=== PATIENT | female | born 1970 | race Caucasian/White ===

== ENCOUNTER 2020-08-06 13:27 | Inpatient (IN) | payer MEDICAID ==
[~2020-08-06] VITALS: Ht 170.2 cm; Wt 56.6 kg
--- NOTE | 2020-08-06 16:45 | NUR ---
Admission Note: Pt. admitted at approximately 1645 from [facility], arrived in a w/c accompanied by [employer] and security. Pt. was originally BIB EMS after being found in front of an AM/PM store confused, disoriented, with rapid/pressured speech, and speaking in tongues. Pt. also c/o feeling like she was having a heart attack or a stroke, she was medically cleared at [facility]. Pt's toxicology screen was positive for amphetamines. She reported while there that she has received mental health treatment since the age of 20. Pt. was somewhat cooperative with the admission process, although she required frequent direction/redirection r/t tangental thought process and rapid, disorganized speech.
[2020-08-06 16:50] VITALS: BP 125/69
[2020-08-06] MEDS ORDERED: magnesium hydroxide 30ml (MOM) UD suspension PO PRN (17:05)
[2020-08-06] MEDS ORDERED: acetaminophen 325mg tablet PO PRN (17:05)
[2020-08-06] MEDS ORDERED: mag hydrox/Alum hydrox/simeth 30ml oral suspension PO PRN (17:05)
[2020-08-06] MEDS ORDERED: NICOTINE POLACRILEX 2 MG LOZENGE BC PRN (17:05)
[2020-08-06] MEDS ORDERED: GABA300C PO (17:50)
[2020-08-06] MEDS ORDERED: RISP0.5T74 PO (17:50)
[2020-08-06] MEDS: risperiDONE 0.5mg tablet PO SCH (20:07)
[2020-08-06] MEDS: gabapentin 300mg capsule PO SCH (20:07)
[2020-08-06 20:25] VITALS: BP 124/66
--- NOTE | 2020-08-06 23:04 | NUR ---
Nursing Progress Note:[] Legal hold:[] Client on voluntary/involuntary status for GD/DTS/DTO[]. Report received from nurse with use of SBAR[]. Why are they here: Pt. admitted at approximately 1645 from [facility], arrived in a w/c accompanied by [employer] and security. Pt. was originally BIB EMS after being found in front of an AM/PM store confused, disoriented, with rapid/pressured speech, and speaking in tongues. Pt. also c/o feeling like she was having a heart attack or a stroke, she was medically cleared at [facility]. Pt's toxicology screen was positive for amphetamines. She reported while there that she has received mental health treatment since the age of 20. Pt. was somewhat cooperative with the admission process, although she required frequent direction/redirection r/t tangental thought process and rapid, disorganized speech. What has happened this shift:Pt was in bed eating her dinner tray at shift change. Attempted to interview but pt speech was Tangential rapid with scattered thoughts. Pt was med compliant and went to sleep. S/I, H/I: She denies S/I at this time, A/VH: Denies Sleep: See sleep hrs ADL's: Requires encouragement, Group attendance: No Were meds taken: Yes Any med S/E: None Mental Status Exam Appearance: Hair disheveled, however appropriately dressed Eye contact: Fair, pt. Behavior: Cooperative, fatigued, anxious, withdrawn, and isolative Speech: tangential Mood: Guarded and withdrawn Affect: Constricted Thought process: disorganization Thought Content: scattered Cognition: A&O X(not to place) Insight: Poor Judgment: Poor Interventions PRN's used: none Therapeutic interventions: Introduced self and established rapport, maintained a safe and supportive environment, ensured contract for safety, provided clear and simple instructions, attempted to orient to reality encouraged participation on the unit and provided direction as needed, and maintained Q 15 min safety checks. Restraints/seclusion/emergency medication: N/A Justification of Continued Inpatient Treatment: Pt. requires interruption of current crisis, medication adjustments, and a safe and supportive environment.
[2020-08-07 07:07] LABS: CHOL/HDL RATIO 2.5 (0.00-4.99); CHOLESTEROL 142 MG/DL (0-200); HDL CHOLESTEROL 56 MG/DL (35-60); LDL CHOLESTEROL 71 MG/DL (50-100); TRIGLYCERIDES 57 MG/DL (20-135)
[2020-08-07] MEDS: LORazepam 1 MG tablet PO PRN ×3 (07:08→18:47)
[2020-08-07] MEDS: risperiDONE 0.5mg tablet PO SCH ×2 (07:08→20:15)
[2020-08-07] MEDS: gabapentin 300mg capsule PO SCH ×3 (07:08→20:15)
[2020-08-07 07:09] LABS: HEMOGLOBIN A1C 5.8 % (4.5-6.2)
[2020-08-07] MEDS: nicotine 21mg patch - 24 hr TD SCH (07:09)
[2020-08-07] MEDS: acetaminophen 325mg tablet PO PRN (07:09)
[2020-08-07 08:00] VITALS: BP 150/95
--- NOTE | 2020-08-07 17:37 | NUR ---
Nursing Progress Note: Legal hold: 5150 Client on involuntary status for DTS Report received from nurse with use of SBAR: ALEXI Gold Why are they here: Pt. admitted from [facility], arrived in a w/c accompanied by [employer] and security. Pt. was originally BIB EMS after being found in front of an AM/PM store confused, disoriented, with rapid/pressured speech, and speaking in tongues. Pt. also c/o feeling like she was having a heart attack or a stroke, she was medically cleared at [facility]. Pt's toxicology screen was positive for amphetamines. She reported while there that she has received mental health treatment since the age of 20. Pt. was somewhat cooperative with the admission process, although she required frequent direction/redirection r/t tangental thought process and rapid, disorganized speech. Assessment What has happened this shift: Received pt. sleeping in bed, she awoke for AM blood draw and immediately presented with rapid disorganized speech and random strange behaviors. Pt. was singing and dancing in the hallway, making faces and knocking on the nurses station window, and pacing in the hallways. This racebook writer provided redirection and reminded pt. that her peers were trying to sleep. Pt. was only able to be partially redirected, however continued to exhibit random behaviors and appeared anxious, PRN Ativan administered with effectiveness. Pt. attended breakfast in the Group Room, and 1:1 completed afterwards at bedside. During assessment, pt. was talking baby talk stated, "[place]dr[place]." However, was able to be intermittently redirected to answer simple yes or no questions. Pt. denies all MH s/s, however admits to feeling a little depressed and anxious. She makes intermittent delusional statements, states, "I'm Filippo's daughter." Pt. attended all groups, however again began to exhibit anxiety and with strange intrusive behaviors in the afternoon, additional PRN Ativan administered with effectiveness. Pt. napped in the afternoon, will continue to monitor. S/I, H/I: Denies A/VH: Denies, however appears distracted and internally preoccupied Sleep: Pt. reports she slept well, sleep hours are 10 ADL's: Pt. requires direction from staff Group attendance: Yes Were meds taken: Yes Any med S/E: None Mental Status Exam Appearance: Hair disheveled, however appropriately dressed Eye contact: Good, intense at times Behavior: Cooperative, restless, impulsive, anxious, and hypomanic Speech: Hyperverbal, disorganized, and mostly nonsensical Mood: Pleasant and anxious Affect: Animated Thought process: Tangental and disorganized Thought Content: Possible A/V/MENEZES and delusions Cognition: A&O X2 Insight: Poor Judgment: Poor Interventions PRN's used: Ativan X2 and Tylenol Therapeutic interventions: Maintained a safe and supportive environment, ensured contract for safety, provided clear and simple instructions, attempted to orient to reality, encouraged participation on the unit and provided direction, provided medication education, provided active listening and positive encouragement, and maintained Q 15 min safety checks. Restraints/seclusion/emergency medication: N/A Justification of Continued Inpatient Treatment: Pt. requires interruption of current crisis, medication adjustments, and a safe and supportive environment.
--- NOTE | 2020-08-07 17:54 | NUR ---
Continued Group Art Therapy Notes: This was the first time this patient attended group art therapy. This patient was eager to participate, was pleasant and motivated to draw. During the course of the group session, this patient complete 5 successive drawings. She could not follow the directives, however this therapist kept the patient "in paper" to allow her a place to 'draw and release her what appeared to be excessive emotional content. At one point the patient began drawing on the tables, which is why providing a supply of paper seemed important. It was difficult for this therapist to determine the content of her conversation. On paper, it was observed that several different names were repeated. Patient presented as friendly, however interaction with her peers was challenging (for others as again observed by this therapist. No further communications transpired. Jennifer Oneill MA (Alena Marie), [facility] #[id number], Art Therapist Addendum: 08/07/20 at 1757 by Jennifer STEINER Amended: Links added.
[2020-08-07 20:00] VITALS: BP 132/77
[2020-08-07 20:30] VITALS: BP 132/77
--- NOTE | 2020-08-07 23:36 | NUR ---
Nursing Progress Note: Legal hold: 5150 Client on involuntary status for DTS Report received from nurse with use of SBAR: Gamal RN Why are they here: Pt. admitted from [facility], arrived in a w/c accompanied by [employer] and security. Pt. was originally BIB EMS after being found in front of an AM/PM store confused, disoriented, with rapid/pressured speech, and speaking in tongues. Pt. also c/o feeling like she was having a heart attack or a stroke, she was medically cleared at [facility]. Pt's toxicology screen was positive for amphetamines. She reported while there that she has received mental health treatment since the age of 20. Pt. was somewhat cooperative with the admission process, although she required frequent direction/redirection r/t tangental thought process and rapid, disorganized speech. Assessment What has happened this shift: Patient was wandering the halls talking to her self. and being intrusive to her peers. Her speech is disorganized and talkes in circles. She makes statements like your my grand father but he is the faina of music. my family are singers and thats why Darrius Bedolla erupted. It spewed snow. Pt was given prn Ativan and was less intrusive and after med pass pt went to bed. S/I, H/I: Denies A/VH: Denies, however appears distracted and internally preoccupied Sleep: Pt. reports she slept well, sleep hours are 10 ADL's: Pt. requires direction from staff Group attendance: Yes Were meds taken: Yes Any med S/E: None Mental Status Exam Appearance: Hair disheveled, however appropriately dressed Eye contact: Good, intense at times Behavior: Cooperative, restless, impulsive, anxious, and hypomanic Speech: Hyperverbal, disorganized, and mostly nonsensical Mood: Pleasant and anxious Affect: Animated Thought process: Tangental and disorganized Thought Content: Possible A/V/MENEZES and delusions Cognition: A&O X2 Insight: Poor Judgment: Poor Interventions PRN's used: Ativan Therapeutic interventions: Maintained a safe and supportive environment, ensured contract for safety, provided clear and simple instructions, attempted to orient to reality, encouraged participation on the unit and provided direction, provided medication education, provided active listening and positive encouragement, and maintained Q 15 min safety checks. Restraints/seclusion/emergency medication: N/A Justification of Continued Inpatient Treatment: Pt. requires interruption of current crisis, medication adjustments, and a safe and supportive environment.
[2020-08-08] MEDS: gabapentin 300mg capsule PO SCH ×3 (08:14→19:49)
[2020-08-08] MEDS: risperiDONE 0.5mg tablet PO SCH ×2 (08:14→19:49)
[2020-08-08] MEDS: acetaminophen 325mg tablet PO PRN (08:16)
[2020-08-08] MEDS: nicotine 21mg patch - 24 hr TD SCH (08:16)
[2020-08-08 08:41] VITALS: BP 111/65
[2020-08-08] MEDS: LORazepam 1 MG tablet PO PRN ×2 (13:28→18:49)
--- NOTE | 2020-08-08 15:48 | NUR ---
Nursing Progress Note: Legal hold: 5150 Client on involuntary status for DTS Report received from nurse with use of SBAR: ALEXI Gold Why are they here: Pt. admitted from [facility], arrived in a w/c accompanied by [employer] and security. Pt. was originally BIB EMS after being found in front of an AM/PM store confused, disoriented, with rapid/pressured speech, and speaking in tongues. Pt. also c/o feeling like she was having a heart attack or a stroke, she was medically cleared at [facility]. Pt's toxicology screen was positive for amphetamines. She reported while there that she has received mental health treatment since the age of 20. Pt. was somewhat cooperative with the admission process, although she required frequent direction/redirection r/t tangental thought process and rapid, disorganized speech. Assessment What has happened this shift: Received pt. sleeping in bed, she was awoken by staff to attend breakfast, and afterwards retreated back to bed. Pt. presented as more clear this morning and greets this development writer appropriately, states, "I slept well." However, after breakfast pt. again began to present with strange behaviors AEB singing loudly and dancing in the hallway and was observed to be talking aloud to herself in a disorganized and nonsensical manner. Pt. isolated and slept throughout the morning and awoke in the afternoon. 1:1 completed at bedside, pt. continues to deny all MH s/s, however admits to having anxiety. When questioned by this development writer in regard to her anxiety, pt. states, "I had six abortions." She reports she has two living children in [place] where she is from, however then begins to make delusional statements. She reports she has not seen her children because she has been on a, "Catholic walk to [place]." Pt. then reports that she has LEENA, and when asked to clarify this, stated, "It's extra-sensory perception, I can control the people around me." Pt. then began to speak in a non-sense what appeared to be a made-up language. She exhibited increased anxiety AEB pacing the hallway and becoming intrusive with peers and was only able to be partially redirected, PRN Ativan administered with effectiveness. Pt. attended art group and remained up throughout the afternoon, continuing to attempt to interact with her peers, however continues to present as disorganized with rapid non-sensical speech. S/I, H/I: Denies A/VH: Denies, however appears distracted and internally preoccupied Sleep: Pt. reports she slept well, sleep hours are 7.25, naps during the day ADL's: Pt. requires direction from staff Group attendance: Yes Were meds taken: Yes Any med S/E: None Mental Status Exam Appearance: Hair disheveled, however appropriately dressed Eye contact: Good, intense at times Behavior: Cooperative, restless, impulsive, anxious, and hypomanic Speech: Hyperverbal, disorganized, and mostly nonsensical Mood: Pleasant and anxious Affect: Animated Thought process: Tangental and disorganized Thought Content: Possible A/V/MENEZES and delusions Cognition: A&O X2 Insight: Poor Judgment: Poor Interventions PRN's used: Ativan X1 and Tylenol Therapeutic interventions: Maintained a safe and supportive environment, ensured contract for safety, provided clear and simple instructions, attempted to orient to reality, encouraged participation on the unit and provided direction, provided medication education, provided active listening and positive encouragement, and maintained Q 15 min safety checks. Restraints/seclusion/emergency medication: N/A Justification of Continued Inpatient Treatment: Pt. requires interruption of current crisis, medication adjustments, and a safe and supportive environment.
[2020-08-08 20:22] VITALS: BP 118/75
[2020-08-08] MEDS ORDERED: risperiDONE 2mg tablet PO ONE (20:30)
--- NOTE | 2020-08-08 23:23 | NUR ---
Nursing Progress Note: Legal hold: 5150 Client on involuntary status for DTS Report received from nurse with use of SBAR: Gamal RN Why are they here: Pt. admitted from [facility], arrived in a w/c accompanied by [employer] and security. Pt. was originally BIB EMS after being found in front of an AM/PM store confused, disoriented, with rapid/pressured speech, and speaking in tongues. Pt. also c/o feeling like she was having a heart attack or a stroke, she was medically cleared at [facility]. Pt's toxicology screen was positive for amphetamines. She reported while there that she has received mental health treatment since the age of 20. Pt. was somewhat cooperative with the admission process, although she required frequent direction/redirection r/t tangental thought process and rapid, disorganized speech. Assessment What has happened this shift: Patient was in her room at change of shift talking to her self. She stated I'm talking to my Grand father. She told this proposal writer "I can see your soul and future." She would picker tender aphone and dial few numbers and have a long conversation and you could hear the recording call can not be completed as dilled. Pt was med compliant and less intrusive this shift. S/I, H/I: Denies A/VH: Denies, however appears distracted and internally preoccupied Sleep: Pt. reports she slept well, sleep hours are 7.25, naps during the day ADL's: Pt. requires direction from staff Group attendance: Yes Were meds taken: Yes Any med S/E: None Mental Status Exam Appearance: Hair disheveled, however appropriately dressed Eye contact: Good, intense at times Behavior: Cooperative, restless, impulsive, anxious, and hypomanic Speech: Hyperverbal, disorganized, and mostly nonsensical Mood: Pleasant and anxious Affect: Animated Thought process: Tangental and disorganized Thought Content: Possible A/V/MENEZES and delusions Cognition: A&O X2 Insight: Poor Judgment: Poor Interventions PRN's used: Ativan X1 and Tylenol Therapeutic interventions: Maintained a safe and supportive environment, ensured contract for safety, provided clear and simple instructions, attempted to orient to reality, encouraged participation on the unit and provided direction, provided medication education, provided active listening and positive encouragement, and maintained Q 15 min safety checks. Restraints/seclusion/emergency medication: N/A Justification of Continued Inpatient Treatment: Pt. requires interruption of current crisis, medication adjustments, and a safe and supportive environment.
[2020-08-09] MEDS: risperiDONE 2mg tablet PO SCH (07:47)
[2020-08-09] MEDS: gabapentin 300mg capsule PO SCH ×3 (07:48→20:01)
[2020-08-09] MEDS: nicotine 21mg patch - 24 hr TD SCH (07:50)
[2020-08-09 09:20] VITALS: BP 112/52
--- NOTE | 2020-08-09 15:22 | NUR ---
Nursing Progress Note: Legal hold: 5150 Client on involuntary status for DTS Report received from RN with use of SBAR Why are they here: Pt. admitted from [facility], arrived in a w/c accompanied by [employer] and security. Pt. was originally BIB EMS after being found in front of an AM/PM store confused, disoriented, with rapid/pressured speech, and speaking in tongues. Pt. also c/o feeling like she was having a heart attack or a stroke, she was medically cleared at [facility]. Pt's toxicology screen was positive for amphetamines. She reported while there that she has received mental health treatment since the age of 20. Pt. was somewhat cooperative with the admission process, although she required frequent direction/redirection r/t tangental thought process and rapid, disorganized speech. Assessment What has happened this shift: Received pt. sleeping in bed w/o distress at beginning of shift. Pt was cooperative with vitals, AM meds, and morning assessments, although she speaks in word salad and disorganized. Pt ate meals well with others and attended part of the AM group. Pt paced halls a lot with a Bible in her hand and making statements that were partial quotes from the bible mixed with delusional and unrelated statements. Pt shows concern for her roommate and encourages her to engage in daily life/activities. Pt is intrusive at times and handles redirection ok. It is difficult to have a meaningful conversation as she starts to freely associate and make random statements about words spoken by others in her vicinity. S/I, H/I: Denies A/VH: Denies, however appears distracted and internally preoccupied Sleep: None this shift ADL's: Pt. requires direction from staff Group attendance: Yes Were meds taken: Yes Any med S/E: None Mental Status Exam Appearance: Hair disheveled, however appropriately dressed Eye contact: Good, intense at times Behavior: Cooperative, restless, impulsive, anxious, and hypomanic Speech: Hyperverbal, disorganized Mood: Pleasant and anxious Affect: Animated Thought process: Tangental and disorganized Thought Content: Possible A/V/MENEZES and delusions Cognition: A&O X2 Insight: Poor Judgment: Poor Interventions PRN's used: Ativan and Tyllenol Therapeutic interventions: Maintained a safe and supportive environment, ensured contract for safety, provided clear and simple instructions, attempted to orient to reality, encouraged participation on the unit and provided direction, provided medication education, provided active listening and positive encouragement, and maintained Q 15 min safety checks. Restraints/seclusion/emergency medication: N/A Justification of Continued Inpatient Treatment: Pt. requires interruption of current crisis, medication adjustments, and a safe and supportive environment.
[2020-08-09 20:00] VITALS: BP 127/84
[2020-08-09] MEDS: LORazepam 1 MG tablet PO PRN (20:01)
[2020-08-09] MEDS: traZODone 50mg tablet PO PRN (20:01)
[2020-08-09] MEDS: risperiDONE 0.5mg tablet PO SCH (20:02)
--- NOTE | 2020-08-10 04:12 | NUR ---
Nursing Progress Note: Legal hold: 5150 Client on involuntary status for DTS Report received from nurse with use of SBAR: Gamal RN Why are they here: Pt. admitted from [facility], arrived in a w/c accompanied by [employer] and security. Pt. was originally BIB EMS after being found in front of an AM/PM store confused, disoriented, with rapid/pressured speech, and speaking in tongues. Pt. also c/o feeling like she was having a heart attack or a stroke, she was medically cleared at [facility]. Pt's toxicology screen was positive for amphetamines. She reported while there that she has received mental health treatment since the age of 20. Pt. was somewhat cooperative with the admission process, although she required frequent direction/redirection r/t tangental thought process and rapid, disorganized speech. Assessment What has happened this shift: Pt was active on unit all evening, walking the halls and playing with puzzle pieces and torn up pieces of paper. pt is disorganized and can't carry on a conversation due to her pressured speech. She will speak nonstop about nonsensical things when trying to ascertain how she is doing. Pt showered and had snack with other pt's, and despite being disorganized, pt is cooperative and friendly. S/I, H/I: Denies A/VH: Denies, however appears distracted and internally preoccupied Sleep: see sleep assessment ADL's: Pt. requires direction from staff , showered tonight Group attendance: Yes Were meds taken: Yes Any med S/E: None Mental Status Exam Appearance: wnl Eye contact: fair Behavior: restless, impulsive, anxious, and hypomanic Speech: Hyperverbal, disorganized, and mostly nonsensical Mood: Pleasant and anxious Affect: Animated Thought process: Tangental and disorganized Thought Content: Possible A/V/MENEZES and delusions Cognition: A&O X2 Insight: Poor Judgment: Poor Interventions PRN's used: Ativan X1 and Tylenol Therapeutic interventions: Maintained a safe and supportive environment, ensured contract for safety, provided clear and simple instructions, attempted to orient to reality, encouraged participation on the unit and provided direction, provided medication education, provided active listening and positive encouragement, and maintained Q 15 min safety checks. Restraints/seclusion/emergency medication: N/A Justification of Continued Inpatient Treatment: Pt. requires interruption of current crisis, medication adjustments, and a safe and supportive environment.
[2020-08-10 07:27] VITALS: BP 137/84
[2020-08-10] MEDS: gabapentin 300mg capsule PO SCH ×3 (08:44→20:00)
[2020-08-10] MEDS: risperiDONE 2mg tablet PO SCH (08:44)
[2020-08-10] MEDS: nicotine 21mg patch - 24 hr TD SCH (08:44)
--- NOTE | 2020-08-10 10:00 | NUR ---
Group Therapy: Process Group This Clinicians goals for this process group were as follows: (1) Ask scaling questions about Patients current anxiety, depression, and irritability symptoms as a check-in. (2) Share psychoeducation about emotional escalation as it relates to stress and negative symptoms, Fight, flight, freeze. (2) Provide psychoeducation on the STOPP acronym: Stop, Take a Breath, Observe the situation, Put things into perspective, and, Practice what works. (3) Share psychoeducation on principles of mindfulness and emotional relaxation techniques that Patients may utilize to reduce the acuity of unwanted emotional escalation. (5) Process Clients thoughts and reflections on this topic within the group milieu. Patient identified experiencing the following levels of anxiety, depression, and anger/irritability while present in the group milieu (0-low; 10-High). Anxiety: 1/10 Depression: 2/10 Anger/irritability: 0/10 Patient presented as properly oriented to person, and place during the process group. Patient was dressed in [facility] scrubs within the milieu. Patient frequently moved around in her chair while uttering incoherent sounds. Patient's thought content was disorganized. Patient's thought process was scattered. She engaged in the behavior of echolalia, often repeating words and phrases that this Clinician spoke out loud. Patient presented as slightly hyperverbal. She maintained intermittent eye contact with this Clinician. Patient presented in calm, euphoric mood, during the process group. Patient provided answers to scaling questions about the intensity of her anxiety, depression, and anger/irritability symptoms. Approximately 15 minutes into the process group, Patient became incontinent and left the group room, which served as a distraction. [facility] staff assisted with the situation and this Clinician continued to facilitate the process group. Fer Reed MA, [employer] Addendum: 08/13/20 at 0821 by Fer Reed Amended: Links added.
[2020-08-10] MEDS: loperamide 2mg capsule PO PRN (11:26)
[2020-08-10] MEDS: LORazepam 1 MG tablet PO PRN (16:28)
--- NOTE | 2020-08-10 18:04 | NUR ---
Nursing Progress Note: Legal hold: 5150 Client on involuntary status for DTS Report received from Geovanny TRUONG with use of SBAR Why are they here: Pt. admitted from [facility], arrived in a w/c accompanied by [employer] and security. Pt. was originally BIB EMS after being found in front of an AM/PM store confused, disoriented, with rapid/pressured speech, and speaking in tongues. Pt. also c/o feeling like she was having a heart attack or a stroke, she was medically cleared at [facility]. Pt's toxicology screen was positive for amphetamines. She reported while there that she has received mental health treatment since the age of 20. Pt. was somewhat cooperative with the admission process, although she required frequent direction/redirection r/t tangental thought process and rapid, disorganized speech. Assessment What has happened this shift: RN received pt. awake, pacing in hallways and talking loudly to herself and read her Bible out loud. Pt. ate breakfast and took medications. 1:1 done at bedside, pt. denies SI/HI, A/V hallucinations. Pt. carrying on nonsensical conversation while RN assessed her. Pt. saying words in American, when RN asked her about her language ability pt. stated, I speak 26 languages. Pt. reports her mood is good. Pt. c/o constipation and given milk of magnesia. Pt. was incontinent of urine during group. Shortly after pt. was incontinent of stool x2, with diarrhea. Pt. given Imodium and showered. Pt. carries on continuous conversation with herself, singing, and reading the Bible throughout the day. S/I, H/I: Denies A/VH: Denies but responding to internal stimuli. Sleep: Did not nap ADL's: Needs prompting. Pt. showered after bouts of incontinence. Group attendance: No Were meds taken: Yes Any med S/E: None Mental Status Exam Appearance: Clean but disheveled, wearing unit scrubs. Eye contact: Good, intense at times Behavior: Cooperative, restless, impulsive, anxious, and hypomanic Speech: Hyperverbal, pressured, disorganized speech Mood: Pleasant but anxious Affect: Animated Thought process: Tangential, disorganized, delusions. Thought Content: Delusions Cognition: A&O X3 (Not to circumstance) Insight: Poor Judgment: Poor Interventions PRN's used: Ativan, MOM, Imodium. Therapeutic interventions: Maintained a safe and supportive environment, ensured contract for safety, provided clear and simple instructions, attempted to orient to reality, encouraged participation on the unit and provided direction, provided medication education, provided active listening and positive encouragement, and maintained Q 15 min safety checks. Restraints/seclusion/emergency medication: N/A Justification of Continued Inpatient Treatment: Pt. requires interruption of current crisis, medication adjustments, and a safe and supportive environment.
[2020-08-10] MEDS: risperiDONE 0.5mg tablet PO SCH (20:00)
[2020-08-10] MEDS: traZODone 50mg tablet PO PRN (20:01)
[2020-08-10 20:09] VITALS: BP 122/82
--- NOTE | 2020-08-11 00:04 | NUR ---
Nursing Progress Note: Legal hold: 5150 Client on involuntary status for DTS Report received from nurse with use of SBAR: ALEXI Small Why are they here: Pt. admitted from [facility], arrived in a w/c accompanied by [employer] and security. Pt. was originally BIB EMS after being found in front of an AM/PM store confused, disoriented, with rapid/pressured speech, and speaking in tongues. Pt. also c/o feeling like she was having a heart attack or a stroke, she was medically cleared at [facility]. Pt's toxicology screen was positive for amphetamines. She reported while there that she has received mental health treatment since the age of 20. Pt. was somewhat cooperative with the admission process, although she required frequent direction/redirection r/t tangental thought process and rapid, disorganized speech. Assessment What has happened this shift: pt continues to be disorganized, tangential and has pressured speech. She spent the evening talking to herself using word salad and will repeat whatever is heard around her. Pt cannot have a conversation as she is too preoccupied internally and cant stop talking long enough to be able to communicate with. When asked if she hears voices she responded, I can hear your voice, voice of anything, I can hear anything, everything happens. S/I, H/I: Denies A/VH: Denies, however appears distracted and internally preoccupied Sleep: see sleep assessment ADL's: Pt. requires direction from staff , showered tonight Group attendance: Yes Were meds taken: Yes Any med S/E: None Mental Status Exam Appearance: wnl, wearing green scrubs Eye contact: good Behavior: restless, impulsive, anxious, and hypomanic Speech: Hyperverbal, disorganized, and mostly nonsensical Mood: Pleasant and anxious Affect: Animated Thought process: Tangental and disorganized Thought Content: Possible A/V/MENEZES and delusions Cognition: A&O X2 Insight: Poor Judgment: Poor Interventions PRN's used: Ativan X1 Therapeutic interventions: Maintained a safe and supportive environment, ensured contract for safety, provided clear and simple instructions, attempted to orient to reality, encouraged participation on the unit and provided direction, provided medication education, provided active listening and positive encouragement, and maintained Q 15 min safety checks. Restraints/seclusion/emergency medication: N/A Justification of Continued Inpatient Treatment: Pt. requires interruption of current crisis, medication adjustments, and a safe and supportive environment.
[2020-08-11 08:00] VITALS: BP 104/63
[2020-08-11] MEDS: nicotine 21mg patch - 24 hr TD SCH (08:02)
[2020-08-11] MEDS: gabapentin 300mg capsule PO SCH ×3 (08:02→20:06)
[2020-08-11] MEDS: risperiDONE 2mg tablet PO SCH (08:03)
--- NOTE | 2020-08-11 10:29 | NUR ---
Initial: Pt admit with psychosis. Currently on a regular diet documented with 100% PO intake throughout LOS meeting nutrient needs. LBM 08/10. No edema or wounds. No nutrition diagnosis at this time. Will continue to follow. Recommendations: 1) Continue regular diet 2) Bowel care PRN 3) Scaled weights per rx Addendum: 08/11/20 at [address] Amended: Links added.
--- NOTE | 2020-08-11 17:28 | NUR ---
Nursing Progress Note: Legal hold: 5150 Client on involuntary status for DTS Report received from ALEXI Arias with use of SBAR: Why are they here: Pt. admitted from [facility], arrived in a w/c accompanied by [employer] and security. Pt. was originally BIB EMS after being found in front of an AM/PM store confused, disoriented, with rapid/pressured speech, and speaking in tongues. Pt. also c/o feeling like she was having a heart attack or a stroke, she was medically cleared at [facility]. Pt's toxicology screen was positive for amphetamines. She reported while there that she has received mental health treatment since the age of 20. Pt. was somewhat cooperative with the admission process, although she required frequent direction/redirection r/t tangential thought process and rapid, disorganized speech. Assessment What has happened this shift: Pt was having conversations with internal stimuli all day. She was pleasant and kind. Occasionally she had a lucid conversation with RN but then went back to tangential incoherent conversation. She talked once on the phone to her parents. She was tangential all day while singing or reading aloud. She played cards. She socialized some with other residents. S/I, H/I: Pt Denies A/VH: Responds to internal stimuli Sleep: No naps during the day ADL's: Independent. Group attendance: No group Were meds taken: Yes Any med S/E: None noted Mental Status Exam Appearance: Wearing green scrubs Eye contact: Direct Behavior: Sings and has conversations all day with internal stimuli. Speech: Pressured. Tangential. Incoherent conversation most of the time with brief moments being lucid. Mood: Pleasant Affect: Bright Thought process: Tangential Thought Content: Unable to assess Cognition: Alert Insight: Poor Judgment: Poor Interventions PRN's used: None Therapeutic interventions: Maintained a safe and supportive environment, ensured contract for safety, provided clear and simple instructions, attempted to orient to reality, encouraged participation on the unit and provided direction, provided medication education, provided active listening and positive encouragement, and maintained Q 15 min safety checks. Restraints/seclusion/emergency medication: N/A Justification of Continued Inpatient Treatment: Pt. requires interruption of current crisis, medication adjustments, and a safe and supportive environment.
[2020-08-11 20:00] VITALS: BP 129/81
[2020-08-11] MEDS: LORazepam 1 MG tablet PO PRN (20:06)
[2020-08-11] MEDS: risperiDONE 0.5mg tablet PO SCH (20:06)
[2020-08-11] MEDS: divalproex 250mg tablet, delayed-release PO SCH (20:06)
--- NOTE | 2020-08-12 02:16 | NUR ---
Nursing Progress Note: Legal hold: 5150 Client on involuntary status for DTS Report received from nurse with use of SBAR: ALEXI Small Why are they here: Pt. admitted from [facility], arrived in a w/c accompanied by [employer] and security. Pt. was originally BIB EMS after being found in front of an AM/PM store confused, disoriented, with rapid/pressured speech, and speaking in tongues. Pt. also c/o feeling like she was having a heart attack or a stroke, she was medically cleared at [facility]. Pt's toxicology screen was positive for amphetamines. She reported while there that she has received mental health treatment since the age of 20. Pt. was somewhat cooperative with the admission process, although she required frequent direction/redirection r/t tangental thought process and rapid, disorganized speech. Assessment What has happened this shift: pt is still disorganized, rapid speech, mostly word salad. pt was able to remember this writers name for the first time and was able to almost have a conversation though. Pt is friendly, cooperative and generally pleasant. Pt was speaking loudly in her room and was asked to move to the group room to give her roommate some privacy. Pt was happy to do this and was able to understand that she was being intrusive. Pt accepted all assessments well and did not have issue taking hs meds. pt was started on depakote tonight. pt sleeps well at night. S/I, H/I: Denies A/VH: Denies, however appears distracted and internally preoccupied Sleep: see sleep assessment ADL's: Pt. requires direction from staff , showered tonight Group attendance: Yes Were meds taken: Yes Any med S/E: None Mental Status Exam Appearance: wnl, wearing green scrubs Eye contact: good Behavior: restless, impulsive, anxious, and hypomanic Speech: Hyperverbal, disorganized, and mostly nonsensical Mood: Pleasant and anxious Affect: Animated Thought process: Tangental and disorganized Thought Content: Possible A/V/MENEZES and delusions Cognition: A&O X2 Insight: Poor Judgment: Poor Interventions PRN's used: Ativan X1 Therapeutic interventions: Maintained a safe and supportive environment, ensured contract for safety, provided clear and simple instructions, attempted to orient to reality, encouraged participation on the unit and provided direction, provided medication education, provided active listening and positive encouragement, and maintained Q 15 min safety checks. Restraints/seclusion/emergency medication: N/A Justification of Continued Inpatient Treatment: Pt. requires interruption of current crisis, medication adjustments, and a safe and supportive environment.
[2020-08-12] MEDS: gabapentin 300mg capsule PO SCH ×3 (07:35→20:20)
[2020-08-12] MEDS: loperamide 2mg capsule PO PRN (07:36)
[2020-08-12] MEDS: risperiDONE 2mg tablet PO SCH (07:36)
[2020-08-12] MEDS: nicotine 21mg patch - 24 hr TD SCH (08:12)
[2020-08-12 08:40] VITALS: BP 102/60
--- NOTE | 2020-08-12 15:51 | NUR ---
Nursing Progress Note: Legal hold: 5150 Client on involuntary status for DTS Report received from nurse with use of SBAR: ALEXI Small Why are they here: Pt. admitted from [facility], arrived in a w/c accompanied by [employer] and security. Pt. was originally BIB EMS after being found in front of an AM/PM store confused, disoriented, with rapid/pressured speech, and speaking in tongues. Pt. also c/o feeling like she was having a heart attack or a stroke, she was medically cleared at [facility]. Pt's toxicology screen was positive for amphetamines. She reported while there that she has received mental health treatment since the age of 20. Pt. was somewhat cooperative with the admission process, although she required frequent direction/redirection r/t tangental thought process and rapid, disorganized speech. Assessment What has happened this shift: Patient talks almost constantly, some makes sense some does not and time it is just word after word. Patient went to all meals. Patient napped after breakfast and worked out in rec room. Patient walked halls while talking to self. Patient sat on room floor next to neighbor's bed coloring while talking to other patient. Patient demonstrates concern for others and alerted this nurse to another patient's needs. Patient singing in room. S/I, H/I: Denies A/VH: Denies, however appears distracted and internally preoccupied Sleep: Patient napped after breakfast ADL's: Independent Group attendance: No group activity today Were meds taken: Yes Any med S/E: None Mental Status Exam Appearance: Clean and hair up in ponytail, wearing green scrubs Eye contact: good Behavior: restless, impulsive, anxious, and hypomanic Speech: Hyperverbal, disorganized, and mostly nonsensical Mood: Pleasant and anxious Affect: Animated Thought process: Tangental and disorganized Thought Content: Possible A/V/MENEZES and delusions Cognition: A&O X2 Insight: Poor Judgment: Poor Interventions PRN's used: None Therapeutic interventions: Maintained a safe and supportive environment, ensured contract for safety, provided clear and simple instructions, attempted to orient to reality, encouraged participation on the unit and provided direction, provided medication education, provided active listening and positive encouragement, and maintained Q 15 min safety checks. Restraints/seclusion/emergency medication: N/A Justification of Continued Inpatient Treatment: Pt. requires interruption of current crisis, medication adjustments, and a safe and supportive environment.
[2020-08-12 20:00] VITALS: BP 125/80
[2020-08-12] MEDS: divalproex 250mg tablet, delayed-release PO SCH (20:20)
[2020-08-12] MEDS: risperiDONE 0.5mg tablet PO SCH (20:21)
--- NOTE | 2020-08-12 23:47 | NUR ---
Nursing Progress Note: Legal hold: 5150 Client on involuntary status for DTS Report received from nurse with use of SBAR: ALEXI Small Why are they here: Pt. admitted from [facility], arrived in a w/c accompanied by [employer] and security. Pt. was originally BIB EMS after being found in front of an AM/PM store confused, disoriented, with rapid/pressured speech, and speaking in tongues. Pt. also c/o feeling like she was having a heart attack or a stroke, she was medically cleared at [facility]. Pt's toxicology screen was positive for amphetamines. She reported while there that she has received mental health treatment since the age of 20. Pt. was somewhat cooperative with the admission process, although she required frequent direction/redirection r/t tangental thought process and rapid, disorganized speech. Assessment What has happened this shift: Patient was in the tidwell having rambling conversations with family members and Filippo. Pt sounds like she is on the phone but there is no phone in her hand. She was singing in her room and dancing. Pt was med compliant needed some redirection and went to bed after snack. S/I, H/I: Denies A/VH: Denies, however appears distracted and internally preoccupied Sleep: Patient napped after breakfast ADL's: Independent Group attendance: No group activity today Were meds taken: Yes Any med S/E: None Mental Status Exam Appearance: Clean and hair up in ponytail, wearing green scrubs Eye contact: good Behavior: restless, impulsive, anxious, and hypomanic Speech: Hyperverbal, disorganized, and mostly nonsensical Mood: Pleasant and anxious Affect: Animated Thought process: Tangental and disorganized Thought Content: Possible A/V/MENEZES and delusions Cognition: A&O X2 Insight: Poor Judgment: Poor Interventions PRN's used: None Therapeutic interventions: Maintained a safe and supportive environment, ensured contract for safety, provided clear and simple instructions, attempted to orient to reality, encouraged participation on the unit and provided direction, provided medication education, provided active listening and positive encouragement, and maintained Q 15 min safety checks. Restraints/seclusion/emergency medication: N/A Justification of Continued Inpatient Treatment: Pt. requires interruption of current crisis, medication adjustments, and a safe and supportive environment.
[2020-08-13 08:00] VITALS: BP 91/62
[2020-08-13] MEDS: gabapentin 300mg capsule PO SCH ×2 (08:13→13:28)
[2020-08-13] MEDS: risperiDONE 2mg tablet PO SCH (08:14)
[2020-08-13] MEDS: nicotine 21mg patch - 24 hr TD SCH (08:16)
--- NOTE | 2020-08-13 10:00 | NUR ---
Group Therapy: Process Group This Clinicians goal for this process group were as follows: (1) Ask scaling questions about Patients current anxiety, depression, and irritability symptoms as a check-in. (2) Provide psychoeducation on emotional and situational stressors. (3) Discuss thoughts and feelings that patients experience when they have experienced an emotional and/or situational stressor. (4) Provide psychoeducation on interventions, as actions patients can take to reduce feelings of emotional escalation caused by situational and emotional stressors. (5) Process Patients thoughts and reflections on this topic within the group milieu. Patient identified experiencing the following levels of anxiety, depression, and anger/irritability while present in the group milieu (0-low; 10-High). Anxiety: 0.5/10 Depression: 0/10 Anger/irritability: 0/10 Patient presented as properly oriented x4 during the process group. Patient was dressed in green hospital scrubs within the milieu. This Clinician observed Patient coloring with a green crayola marker that she secured. This Clinician asked Patient what she was doing. She stated that she was writing a letter to, "Maame and her Daddy." On a few occasions, Patient put the covered end of the marker in her mouth. Patient gestured with her hands on occasion, sometimes holding her arms above her head as she colored at her seat. Patient's thought content was clear, and concrete. Patient's thought process varied between being clear, coherent, and linear, and being marked by tangential thinking and flight of ideas. Patient presented as slightly hyperverbal. The rate, latency, and tone of Patients speech was within normal limits. This Clinician verbally prompted Patient to quiet down on a few different occasions during the process group, as she frequently spoke over this Clinician--and at one time began singing a song. On at least one occasion, she began speaking a language that this Clinician did not understand. Patient maintained intermittent eye contact with this Clinician. Patient presented in calm euthymic mood, with congruent affect during the process group. Patient presented as open and cooperative, was verbally engaged and mildly intrusive within the group milieu, due to her hypomanic behaviors. Patient occasionally made comments that indicated that she was tracking with the information that was being presented on how to practice adaptive coping skills to reduce the acuity of unwanted mental health symptoms when exposed to stressful situations. Fer Reed MA, PATTERN FILER Addendum: 08/14/20 at 0815 by Fer STEINER Amended: Links added.
--- NOTE | 2020-08-13 15:26 | NUR ---
Nursing Progress Note: Legal hold: 5150 Client on involuntary status for DTS Report received from ALEXI Small with use of SBAR: Why are they here: Pt. admitted from [facility], arrived in a w/c accompanied by [employer] and security. Pt. was originally BIB EMS after being found in front of an [employer] store confused, disoriented, with rapid/pressured speech, and speaking in tongues. Pt. also c/o feeling like she was having a heart attack or a stroke, she was medically cleared at [facility]. Pt's toxicology screen was positive for amphetamines. She reported while there that she has received mental health treatment since the age of 20. Pt. was somewhat cooperative with the admission process, although she required frequent direction/redirection r/t tangential thought process and rapid, disorganized speech. Assessment What has happened this shift: Patient was asleep at change of shift and up for breakfast. Patient is disorganized and says random things and picks up words for nearby conversations. Patient came out of her room this morning and says Holy Ghost and holy grail. Patient is pleasantly psychotic. Patient is a little better than when RN last saw her a couple of days ago. Patient is very attentive to her roommate who needs assistance. She is very loving and concerned for her. Patient denies suicidal/homicidal ideation. Patient denies audio/visual hallucinations but often appears to be responding to internal stimuli. S/I, H/I: Pt Denies A/VH: denies but appears to be responding to internal stimuli Sleep: No naps during the day ADL's: Independent. Group attendance: No group Were meds taken: Yes Any med S/E: None noted Mental Status Exam Appearance: Wearing green scrubs, hair brushed and neat. Eye contact: Direct Behavior: Sings and has conversations all day with internal stimuli. Speech: Pressured. Tangential. Incoherent conversation most of the time with brief moments being lucid. Mood: Pleasant Affect: Bright Thought process: Tangential Thought Content: Unable to assess Cognition: Alert Insight: Poor Judgment: Poor Interventions PRN's used: None Therapeutic interventions: Maintained a safe and supportive environment, ensured contract for safety, provided clear and simple instructions, attempted to orient to reality, encouraged participation on the unit and provided direction, provided medication education, provided active listening and positive encouragement, and maintained Q 15 min safety checks. Restraints/seclusion/emergency medication: N/A Justification of Continued Inpatient Treatment: Pt. requires interruption of current crisis, medication adjustments, and a safe and supportive environment.
--- NOTE | 2020-08-13 16:14 | NUR ---
-DCP Presenting Issues: Per 5249 Hearing, pt was determined to no longer meet LPS GD criteria. Pt expressed that she understood that this means she can be d/c from [facility]. Interventions: SS accompanied reconditioner and met w/pt to establish her d/c destination. Per session, pt wants to be d/c and plans to return to the [facility], but will go to the [place] for now. Pt was offered transportation to the [place] and accepted offer of a cab ride. Plan: Pt to d/c today. Nanette Beltran LCSW Addendum: 08/13/20 at 1621 by Nanette STEINER Amended: Links added.
[2020-08-13] MEDS ORDERED: NICO-687 TD (17:08)
[2020-08-13] MEDS ORDERED: GABA300C PO (17:08)
[2020-08-13] MEDS ORDERED: RISP2TAB3 PO (17:08)
[2020-08-13] MEDS ORDERED: TRAZ-251 PO (17:08)
[2020-08-13] MEDS ORDERED: RISP1TAB3 PO (17:08)
--- NOTE | 2020-08-13 18:00 | NUR ---
livestock nutrition territory manager Note: Patient denies suicidal/homicidal ideation. Patient is taking a taxi to get her meds at [facility] and then she is going [facility] the [facility]. Patient given a warm sweatshirt and a beanie for the cold. Patient has all her belongings. Patient is happy to be leaving. Patient ambulatory, steady gait with Tech Gladys to the lobby to await taxi.
== END 2020-08-13 18:00 | disposition short-term general hospital (02) | DRG 751 ==
LOC: ADULT MH 17:00
PROVIDERS: ADMIT Psychiatry & Neurology Psychiatry; ATTEND Psychiatry & Neurology Psychiatry
DX: F33.3 Major depressive disorder, recurrent, severe with psychotic symptoms (principal); F15.10 Other stimulant abuse, uncomplicated; F17.210 Nicotine dependence, cigarettes, uncomplicated; M54.9 Dorsalgia, unspecified; F29 Unspecified psychosis not due to a substance or known physiological condition; G89.29 Other chronic pain; M41.9 Scoliosis, unspecified; Z82.49 Family history of ischemic heart disease and other diseases of the circulatory system; Z98.891 History of uterine scar from previous surgery; I25.2 Old myocardial infarction; Z90.49 Acquired absence of other specified parts of digestive tract; Z71.6 Tobacco abuse counseling; F39 Unspecified mood [affective] disorder
CPT/HCPCS: 36415; 80061; 83036; 87081; 99285